=== PATIENT | male | born 1990 | race African-American/Black ===

== ENCOUNTER → 2021-01-22 | Outpatient (CLI) | payer OTHER ==
[~2021-01-22] MED LIST: BACTRIM DS 8001 TA1 PO; CEPHALEXIN500 M1 PO; NAPROSYN500 MG PO
== END | disposition home or self-care (01) ==
LOC: COVID19 15:28
PROVIDERS: ATTEND Internal Medicine
DX: Z11.52 Encounter for screening for COVID-19 (principal)

== ENCOUNTER → 2021-02-17 | Outpatient (CLI) | payer OTHER | END | disposition home or self-care (01) | LOC: COVID19 16:50 | PROVIDERS: ATTEND Podiatrist Foot & Ankle Surgery | DX: Z20.822 Contact with and (suspected) exposure to COVID-19 (principal) ==

== ENCOUNTER 2021-03-30 15:20 | Emergency (ER) | payer SELFPAY ==
[~2021-03-30] VITALS: Ht 175.2 cm; Wt 81.6 kg
== END 2021-03-30 19:49 | disposition home or self-care (01) ==
LOC: ED 15:20
DX: S63.91XA Sprain of unspecified part of right wrist and hand, initial encounter (principal); S43.402A Unspecified sprain of left shoulder joint, initial encounter; W51.XXXA Accidental striking against or bumped into by another person, initial encounter; Y93.89 Activity, other specified; Y92.89 Other specified places as the place of occurrence of the external cause; Y99.8 Other external cause status